=== PATIENT | female | born 1950 | race Caucasian/White ===

== ENCOUNTER 2016-11-12 08:05 | Inpatient (IN) | payer MEDICARE, SELFPAY ==
[2016-11-08 15:43] LABS: BASOPHILS 0.1 %; BASOPHILS ABSOLUTE 0.01 10/3/uL (0.0-0.16); EOSINOPHILS 0.5 %; EOSINOPHILS ABSOLUTE 0.04 10/3/uL (0.0-0.53); HEMOGLOBIN 15.3 g/dL (12.0-16.0); IMMATURE GRANULOCYTES 0.3 %; IMMATURE GRANULOCYTES ABSOLUTE 0.02 10/3/uL (0.0-0.11); LYMPHOCYTES 22.2 %; LYMPHOCYTES ABSOLUTE 1.73 10/3/uL (0.67-4.30); MEAN CORPUS HGB CONC 33.3 g/dL (32.0-36.0); MEAN CORPUSCULAR HEMOGLOB 31.4 pg (26.0-34.0); MEAN CORPUSCULAR VOLUME 94.5 fL (80-100); MEAN PLATELET VOLUME 10.3 fL (9.2-13.0); MONOCYTES 6.1 %; MONOCYTES ABSOLUTE 0.48 10/3/uL (0.21-1.20); NEUTROPHILS 70.8 %; NEUTROPHILS ABSOLUTE 5.53 10/3/uL (2.02-8.40); RBC DISTRIBUTION WIDTH 12.8 % (12.0-16.0); RED CELL COUNT 4.87 10/6/uL (4.0-5.6); WHITE BLOOD CELLS 7.8 10/3/uL (4.5-10.5)
[2016-11-08 15:45] LABS: MANUAL DIFF NO %; PLATELET COUNT 175 10/3/uL (150-400)
[2016-11-08 15:57] LABS: CHLORIDE, SERUM 103 MMOL/L (96-112); CO2 (CARBON DIOXIDE) 32 MMOL/L (24-34); CREATININE 0.74 MG/DL (0.55-1.02); GFR AFRICAN AMERICAN 99 ML/MIN (>=60); GFR NON AFRICAN AMERICAN 86 ML/MIN (>=60); POTASSIUM, SERUM 4.4 MMOL/L (3.5-5.3); SODIUM, SERUM 141 MMOL/L (135-148)
[2016-11-08 15:58] LABS: BUN (BLOOD UREA NITROGEN) 8 MG/DL (6-23); GLUCOSE, SERUM 197 MG/DL (60-99)
[2016-11-08 16:01] LABS: ASCORBIC ACID (UR NOT ORDER) NEG (NEG); BILIRUBIN, URINE NEGATIVE (NEG); KETONE, URINE NEGATIVE (NEG); LEUKOCYTE ESTERASE(NOT OR MOD (NEG); WBC (NOT ORDERED) (RFLEX) 54 (0-5)
--- NOTE | ~2016-11-12 | OP ---
Record Of Operation [facility] [address] [place]. [address] NAME: STEVEN ORDOÑEZ : 52 STATUS : ADM IN PAT#: [id number] AGE: 65 ADM/REG DATE : 11/12/16 MR#: [id number] REPORT SERV DATE: 11/12/16 DICTATED BY: DON BORRERO DATE: 11/12/16 REPORT STATUS : Draft TRANSCRIBED BY: MODL DATE: 11/12/16 DATE OF PROCEDURE: 11/12/2016 PREOPERATIVE DIAGNOSIS: High-grade right carotid stenosis. POSTOPERATIVE DIAGNOSIS: High-grade right carotid stenosis. SURGERY PERFORMED: Right carotid endarterectomy with bovine patch angioplasty. SURGEON: Don Borrero M.D. OTR REFRIGERATED CDL TRUCK DRIVER: Sreedhar. DESCRIPTION OF PROCEDURE: The patient was placed under general endotracheal anesthesia. Neck and chest were prepped and draped in a sterile fashion. An incision was made along the anterior border of the sternocleidomastoid muscle. This was carried through the skin and subcutaneous tissue. Platysma divided with the cautery unit. The facial vein was doubly ligated with hemostats, divided, and tied with 3-0 silk suture. Common carotid artery dissected surrounding tissue, encircled with vessel loop. The internal and external were dissected distally with the internal being doubly looped with a vessel loop as well. She was given 5000 units of heparin. After an adequate period of time, the internal and external common carotid arteries were occluded. Arteriotomy was made with an 11 blade and extended with Wilkerson scissors through the bulb into the internal. The highest degree of stenosis was noted just after the takeoff of the internal carotid artery. A #10 [place] shunt was placed without difficulty. Endarterectomy carried out with a [place] elevator. Proximal plaque was cut sharply where there was a fairly large posterior plaque that appeared to run down to the clavicle. This was cut sharply, the external done as an eversion and the internal showed a very smooth plaque interface. This was irrigated with heparinized saline. The endarterectomy site appeared to be clean. This was then closed using a bovine patch, which was sewn with running 6-0 Prolene suture. Before the patch was completed, the shunt was removed. Flushing was carried out. The patch completed. Flow initially released to the external and then to the internal carotid artery. Additional sutures were placed as needed. She was given 30 mg of protamine. A 7 flat RAYMOND drain was brought out inferiorly and sutured to the skin with 3-0 Vicryl suture. After adequate hemostasis, the wound was closed with 2-0 and 3-0 Vicryl. The deep tissue and platysma with skin closed with 4-0 Monocryl subcuticular stitch. Sterile dressings were applied. Estimated blood loss was 100 mL. She awoke from the operating room table moving all four extremities. MG/MODL Don Borrero M.D. Record Of Operation [address] [address] NAME: STEVEN ORDOÑEZ : 52 STATUS : ADM IN [facility]#: [id number] AGE: 65 ADM/REG DATE : 11/12/16 MR#: [id number] REPORT SERV DATE: 11/12/16 DICTATED BY: DON BORRERO DATE: 11/12/16 REPORT STATUS : Draft TRANSCRIBED BY: MODL DATE: 11/12/16 / [id number] CC: Don Borrero M.D.
[~2016-11-12 08:05] MED LIST: CELEXA10 PO; CLOBETASOL E0.05 % EX; CLOBETASOL0.054 EX; COZ25 PO; EUCERIN TOP; GAS-X80 MG PO; HUMALOG SC; LEVEMIR SC; LORTAB10 PO; LYRICA100 MG PO; NORCO1 TAB PO; NOVOLOG SC; OTC LAXATIVE PO; PLAVIX PO; PRAVAC PO; VISINE EYE DROPS OPH; VITAMIN D1000 UNI1 PO
[2016-11-13 03:41] LABS: BASOPHILS 0.1 %; BASOPHILS ABSOLUTE 0.01 10/3/uL (0.0-0.16); EOSINOPHILS 0 %; HEMOGLOBIN 13.7 g/dL (12.0-16.0); IMMATURE GRANULOCYTES 0.3 %; IMMATURE GRANULOCYTES ABSOLUTE 0.05 10/3/uL (0.0-0.11); LYMPHOCYTES 7.6 %; LYMPHOCYTES ABSOLUTE 1.13 10/3/uL (0.67-4.30); MANUAL DIFF NO %; MEAN CORPUS HGB CONC 34.3 g/dL (32.0-36.0); MEAN CORPUSCULAR HEMOGLOB 32.5 pg (26.0-34.0); MEAN CORPUSCULAR VOLUME 94.8 fL (80-100); MEAN PLATELET VOLUME 10.4 fL (9.2-13.0); NEUTROPHILS ABSOLUTE 12.84 10/3/uL (2.02-8.40); PLATELET COUNT 167 10/3/uL (150-400); RED CELL COUNT 4.22 10/6/uL (4.0-5.6); WHITE BLOOD CELLS 14.9 10/3/uL (4.5-10.5)
[2016-11-13 04:04] LABS: BUN (BLOOD UREA NITROGEN) 8 MG/DL (6-23); CALCIUM, SERUM 8.4 MG/DL (8.5-10.4); CHLORIDE, SERUM 108 MMOL/L (96-112); CREATININE 0.51 MG/DL (0.55-1.02); GFR AFRICAN AMERICAN 118 ML/MIN (>=60); GFR NON AFRICAN AMERICAN 102 ML/MIN (>=60); POTASSIUM, SERUM 4.7 MMOL/L (3.5-5.3); SODIUM, SERUM 143 MMOL/L (135-148)
[2016-11-13 04:07] LABS: CO2 (CARBON DIOXIDE) 26 MMOL/L (24-34); GLUCOSE, SERUM 148 MG/DL (60-99)
[2017-01-03] MEDS ORDERED: PLAVIX PO (12:50)
[2017-01-03] MEDS ORDERED: NEUR300 PO (12:51)
[2017-01-03] MEDS ORDERED: LEVEMIR SC (12:52)
[2017-01-03] MEDS ORDERED: PRAVACHOL40 MG PO (12:54)
[2017-01-03] MEDS ORDERED: PERCOCET 10/3251 TAB PO (12:54)
[2017-01-03] MEDS ORDERED: NITROQUICK0.4 MG SL (12:55)
[2017-01-03] MEDS ORDERED: METHOC500B PO (12:55)
== END 2016-11-14 15:46 | disposition home or self-care (01) | DRG 39 ==
LOC: SDC/OF 08:05 → PACU 12:17 → CVICU 14:12 → 2SO 11-13 20:07
PROVIDERS: Surgery Vascular Surgery
PROC: 03CK0ZZ Extirpation of Matter from Right Internal Carotid Artery, Open Approach (ICD-10-PCS; principal; 2016-11-12 09:45)
DX: I65.23 Occlusion and stenosis of bilateral carotid arteries (principal); L40.50 Arthropathic psoriasis, unspecified; E78.5 Hyperlipidemia, unspecified; I25.118 Atherosclerotic heart disease of native coronary artery with other forms of angina pectoris; I73.9 Peripheral vascular disease, unspecified; F17.210 Nicotine dependence, cigarettes, uncomplicated; Z98.890 Other specified postprocedural states; Z95.1 Presence of aortocoronary bypass graft; Z95.5 Presence of coronary angioplasty implant and graft
CPT/HCPCS: 71020; 80048; 81001; 82962; 85025; 87077; 87086; 87186; 87641; 88304; 88311; 93005; A9270-GY; C1768; J0690; J2250; J2370; J2405; J2710; J2720; J3010

== ENCOUNTER 2017-01-06 06:41 | Observation (INO) | payer MEDICARE, SELFPAY ==
[2017-01-03 16:40] LABS: BASOPHILS 0.1 %; BASOPHILS ABSOLUTE 0.01 10/3/uL (0.0-0.16); EOSINOPHILS 0.7 %; EOSINOPHILS ABSOLUTE 0.05 10/3/uL (0.0-0.53); HEMOGLOBIN 14.5 g/dL (12.0-16.0); IMMATURE GRANULOCYTES 0.1 %; IMMATURE GRANULOCYTES ABSOLUTE 0.01 10/3/uL (0.0-0.11); LYMPHOCYTES 27.8 %; LYMPHOCYTES ABSOLUTE 2.03 10/3/uL (0.67-4.30); MANUAL DIFF NO %; MEAN CORPUS HGB CONC 33.7 g/dL (32.0-36.0); MEAN CORPUSCULAR HEMOGLOB 31.9 pg (26.0-34.0); MEAN CORPUSCULAR VOLUME 94.7 fL (80-100); MONOCYTES 6.3 %; MONOCYTES ABSOLUTE 0.46 10/3/uL (0.21-1.20); NEUTROPHILS ABSOLUTE 4.74 10/3/uL (2.02-8.40); PLATELET COUNT 166 10/3/uL (150-400); RBC DISTRIBUTION WIDTH 13.2 % (12.0-16.0); RED CELL COUNT 4.54 10/6/uL (4.0-5.6); WHITE BLOOD CELLS 7.3 10/3/uL (4.5-10.5)
[2017-01-03 16:53] LABS: BUN (BLOOD UREA NITROGEN) 10 MG/DL (6-23); CHLORIDE, SERUM 104 MMOL/L (96-112); CREATININE 0.63 MG/DL (0.55-1.02); GFR AFRICAN AMERICAN 109 ML/MIN (>=60); GFR NON AFRICAN AMERICAN 94 ML/MIN (>=60); GLUCOSE, SERUM 162 MG/DL (60-99); POTASSIUM, SERUM 4.2 MMOL/L (3.5-5.3); SODIUM, SERUM 139 MMOL/L (135-148)
[2017-01-03 16:55] LABS: CALCIUM, SERUM 9.4 MG/DL (8.5-10.4); CO2 (CARBON DIOXIDE) 34 MMOL/L (24-34)
--- NOTE | ~2017-01-06 | OP ---
Record Of Operation [facility] [address] [place]. [address] NAME: STEVEN ORDOÑEZ : 52 STATUS : ADM Roxana PAT#: [id number] AGE: 66 ADM/REG DATE : 01/06/17 MR#: [id number] REPORT SERV DATE: 01/06/17 DICTATED BY: DON ADAM DATE: 01/06/17 REPORT STATUS : Draft TRANSCRIBED BY: MODL DATE: 01/06/17 DATE OF PROCEDURE: 01/06/2017 PREOPERATIVE DIAGNOSIS: Claudication, left lower extremity. 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 SURGERY PERFORMED: 1. Aortogram. 2. Bilateral lower extremity runoffs. 3. Left SFA atherectomy using the [place] 1.8 mm device. 4. Drug-eluting balloon angioplasty of the left SFA using a 4 x 120 balloon. LEAD SALES CONSULTANT: Sreedhar. DESCRIPTION OF PROCEDURE: The patient was placed under IV sedation. Both groins were prepped and draped in a sterile fashion. The right femoral artery was cannulated with ultrasound direction. Needle, wire, and sheath were placed. UF catheter placed into the abdominal aorta and aortogram done showing both renal arteries were patent. The left renal artery was well inferior to the right side, but no high-grade stenosis. Aorta and both common iliacs were patent. The UF was pulled down to the distal aorta. Runoff films were done on the right side showing the common external and internal were open of the iliacs. The common femoral, profunda, SFA, popliteal were open, and there was a single-vessel runoff. No significant stenosis noted otherwise. On the left side, the common external and internal iliacs were patent. The common femoral, profunda, and SFA were patent down to the distal thigh where there was complete occlusion of the SFA. There was reconstitution of the popliteal with single-vessel runoff. UF was used to manipulate a wire up and over the bifurcation. A 6, 45 sheath placed up and over the bifurcation. SFA was engaged with a [place] catheter, and using a Glidewire and a catheter, we were able to traverse the occluded segment. Repeat film showing this to be the case. She was given 3000 units of heparin. Then, the 0.035 wire was exchanged for an 0.014 and then atherectomy was carried out with the [place] device. After two passes through the area of occlusion, repeat film now showing this to be patent. There was flow through the area. Still some residual stenosis noted. This was then ballooned using a drug-eluting balloon, it was a 4 x 120, it was only partially insufflated to 6 atmospheres of pressure due to the relatively small vessel. After two balloon insufflations, repeat film now showing this to be widely patent. There were no areas of significant residual stenosis. This being the case, the sheath was pulled back up to the right side. It was removed and Exoseal closure was used, which worked effectively. The patient was actually under general anesthesia and was going to be having a procedure done on her lower lip by the plastic surgeon. ESTIMATED BLOOD LOSS: 30 mL. She was stable during this operation. Record Of Operation [address] [address] NAME: STEVEN ORDOÑEZ : 52 STATUS : ADM Roxana PAT#: [id number] AGE: 66 ADM/REG DATE : 01/06/17 MR#: [id number] REPORT SERV DATE: 01/06/17 DICTATED BY: DON ADAM DATE: 01/06/17 REPORT STATUS : Draft TRANSCRIBED BY: MODYue DATE: 01/06/17 /ARON Don Adam M.D. / [id number] CC: Don Adam M.D.
--- NOTE | ~2017-01-06 | OP ---
Record Of Operation [facility] [address] [place]. [address] NAME: STEVEN ORDOÑEZ : 52 STATUS : DIS Roxana PAT#: [id number] AGE: 66 ADM/REG DATE : 01/06/17 MR#: [id number] REPORT SERV DATE: 01/10/17 DICTATED BY: MAY BO DATE: 01/10/17 REPORT STATUS : Draft TRANSCRIBED BY: MODL DATE: 01/10/17 DATE OF PROCEDURE: 01/06/2017 PREOPERATIVE DIAGNOSIS: Basal cell carcinoma of chin and lower lip area. POSTOPERATIVE DIAGNOSIS: Basal cell carcinoma of chin and lower lip area. PROCEDURES: 1. Excision of nodular basal cell carcinoma of the chin area, 3 cm x 2.5 cm in size. 2. Rotational advancement flap, 3 cm x 4.5 cm in size. 3. Complex closure, 1.2 cm in size. SURGEON: May Bo MD ANESTHESIA: General endotracheal anesthesia. ESTIMATED BLOOD LOSS: 5 mL. IV FLUIDS: 800 mL. COMPLICATIONS: None immediate. SPECIMENS: 1. Basal cell carcinoma of chin. 2. Additional margins. INDICATION FOR PROCEDURE: This is a 66-year-old female with a known history of a large basal cell carcinoma on her chin that was excised by my partner, Dr. Brandyn Angel, in 2010. In the past few months and year, she has noted sort of a recurrence of the crusting and bleeding that she had with the previous recurrence. Therefore, she underwent shave biopsy of the area and it came back again as nodular basal cell carcinoma. With that in mind, we talked about the risks, including but not limited to, bleeding, infection, disfigurement, asymmetry, lip drop, need for revision, etc, as well as the benefits and alternatives, and she agrees to proceed as outlined today. PROCEDURE IN DETAIL: The patient was identified in the preoperative holding area where the lesion on her chin was easily identified and marked. She had antibiotics initiated and was transported to the operating room, where she underwent a vascular procedure with Dr. Don Adam. Please see his portion of the dictation for details of that part of the operation. After completion of Dr. Adam's case, the patient was prepped and draped around the facial area in standard surgical fashion. The lesion of question was marked and approximately 1.5 mL of local anesthetic was introduced without difficulty for vasoconstriction and pain control. This was allowed to set for about 7 minutes and then a full-thickness incision down to the level of the underlying subcutaneous tissue was made with scalpel. The lesion was further elevated from the surrounding tissue with scalpel, marked in the 12 o'clock Record Of Operation [facility] [address] [place]. [address] NAME: STEVEN ORDOÑEZ : 52 STATUS : DIS Roxana PAT#: [id number] AGE: 66 ADM/REG DATE : 01/06/17 MR#: [id number] REPORT SERV DATE: 01/10/17 DICTATED BY: MAY BO DATE: 01/10/17 REPORT STATUS : Draft TRANSCRIBED BY: ARON DATE: 01/10/17 position and passed off the table for frozen section analysis. Gentle pressure was applied to control hemostasis. Eventually, we heard back from Pathology and there was still cancer present on multiple areas, therefore, additional margins were marked off, incised full thickness, into with scalpel down to the level of the underlying muscle and included the deep margin, which a sliver of the muscle was taken. This was again marked with sutures and passed off the table for pathological frozen section analysis. After we eventually had negative margins on all of the specimens submitted, the site was then irrigated and electrocautery was applied for hemostasis. The resultant defect ended up being 3 cm x 2.5 cm in size. With that in mind, I decided to do a rerotation of the previous advancement flap that she had using the previous vertical incision. Scalpel was used to cut full- thickness down to the level of the underlying subcutaneous and muscular tissue. The flap was elevated using blunt dissection and electrocautery. Hemostasis was controlled with electrocautery as well. The resultant size of the flap for adequate closure was 4.5 cm x 3 cm rotational advancement flap. This was irrigated and the site was anchored using interrupted 4-0 Vicryl sutures for deep reapproximation followed by interrupted and running 5-0 Prolene suture. She also had a teed off aspect heading towards the right side of her lower lip, which was closed in a complex fashion by first elevating the surrounding tissue around it with electrocautery and then reapproximating the deep layer with 4-0 Vicryl and finally followed by epidermal reapproximation with a 5-0 Prolene. This area of complex closure was 1.2 cm in length. After all of the sites were closed, they were cleansed and a Xeroform gauze was placed followed by just a gentle pressure bandage and a jaw bra, as the patient had received heparin from the vascular portion. She was then awakened, extubated, and transported to the postanesthesia care unit prior to being admitted for observation because of social issues. She tolerated the procedure well without any initial complication. Sponge and instrument counts were correct and verified at the end of the case. SATNAM/MODL May Bo MD / [id number] CC: Rd He M.D.
[~2017-01-06 06:41] MED LIST changes: +METHOC500B PO; +NEUR300 PO; +NITROQUICK0.4 MG SL; +PERCOCET 10/3251 TAB PO; +PRAVACHOL40 MG PO
[2017-01-07] MEDS ORDERED: OXYCOD PO (15:31)
[2017-01-07] MEDS ORDERED: CIP5 PO (15:32)
== END 2017-01-07 16:47 | disposition home or self-care (01) ==
LOC: SDC 06:41 → SDC/OF 14:47 → 2SO 15:32
PROVIDERS: Surgery Vascular Surgery
PROC: 0HX1XZZ Transfer Face Skin, External Approach (ICD-10-PCS; principal; 2017-01-06 07:45)
PROC: 0HX1XZZ Transfer Face Skin, External Approach (ICD-10-PCS; 2017-01-06 07:45)
PROC: 04CL3ZZ Extirpation of Matter from Left Femoral Artery, Percutaneous Approach (ICD-10-PCS; 2017-01-06 07:45)
DX: C44.319 Basal cell carcinoma of skin of other parts of face (principal); I73.9 Peripheral vascular disease, unspecified; J44.9 Chronic obstructive pulmonary disease, unspecified; Z88.2 Allergy status to sulfonamides; Z88.0 Allergy status to penicillin
CPT/HCPCS: 14041; 37225; 75625; 75716; 80048; 82962; 85025; 88305; 88331; 88332; 93005; A9270-GY; C1760; C1769; C1894; C2623; G0378; J0690; J2250; J2370; J2405; J2710; J3010; Q9966